=== PATIENT | male | born 1970 | race Caucasian/White ===

== ENCOUNTER → 2024-07-05 15:50 | Outpatient (REF) | payer OTHER, SELFPAY | LOC: HWRAD 15:50 | PROVIDERS: ATTENDING PHYSICIAN Nurse Practitioner | DX: M25.511 Pain in right shoulder (principal) | CPT/HCPCS: 73030 ==

== ENCOUNTER → 2024-10-08 06:22 | Day surgery (SDC) | payer OTHER, SELFPAY | LOC: GI 06:22 | PROVIDERS: ATTENDING PHYSICIAN Surgery | PROC: 0DBH8ZX Excision of Cecum, Via Natural or Artificial Opening Endoscopic, Diagnostic (ICD-10-PCS; 2024-10-08) | DX: Z12.11 Encounter for screening for malignant neoplasm of colon (principal); Z86.0100 Personal history of colon polyps, unspecified; D12.0 Benign neoplasm of cecum; D12.8 Benign neoplasm of rectum; K57.30 Diverticulosis of large intestine without perforation or abscess without bleeding; K64.8 Other hemorrhoids; K64.4 Residual hemorrhoidal skin tags | CPT/HCPCS: 45385; 88305 ==

== ENCOUNTER 2024-11-13 06:40 | Day surgery (SDC) | payer OTHER, SELFPAY ==
[2024-11-13 09:25] VITALS: BP 150/93
[2024-11-13] MEDS: NORMOSOL-R/PLASMALYTE-A 1000 IV (09:34)
[2024-11-13] MEDS: CELEBREX 200 MG PO (09:34)
[2024-11-13] MEDS: TYLENOL 1000 MG PO (09:34)
[2024-11-13 09:43] VITALS: BMI 32.4
[2024-11-13 09:44] VITALS: BMI 32.4
--- NOTE | 2024-11-13 11:09 | W.IMMPOSTOP ---
Surgical Immed Post Op Note
-
Primary Surgeon: Armond Alanis MD
Assisting Surgeon: None
Pre-op Diagnosis: Anal skin tags, internal hemorrhoids
Post-op Diagnosis: Anal skin tags, mixed�component hemorrhoids x 3 columns
Procedure Performed: Excision of anal skin tag
Anesthesia Type: Sedation
Specimen / Cultures: Anal skin tag
Estimated Blood Loss: 5 mL
Complications: None
Operative Findings: Moderate-sized pendulous AML skin tag, excised with Metzenbaum scissors and hemostasis with electrocautery; moderate to large internal hemorrhoids with large external component in the RPQ and LLQ; small to moderate internal
hemorrhoid in the RAQ with small external component
[2024-11-13 11:10] VITALS: BP 123/82
--- NOTE | 2024-11-13 11:11 | OR.RPT ---
Operative Report
Operative Report
DATE OF OPERATION: 11/13/2024
SURGEON: Armond Alanis MD
PREOPERATIVE DIAGNOSIS: Anterior anal skin tag, internal hemorrhoids
POSTOPERATIVE DIAGNOSIS: Anterior anal skin tag, mixed�component hemorrhoids in 3-column distribution
OPERATION: Exam under anesthesia, excision of anal skin tag, bilateral pudendal nerve block
ASSISTANTS:
1. None
ANESTHESIA: Sedation with local
ESTIMATED BLOOD LOSS: 5 mL
FINDINGS:
1. Moderate-sized pendulous anterior midline anal skin tag, excised
2. Moderate to large internal hemorrhoids in the right posterior and left lateral position with large external components; small to moderate internal hemorrhoid in the right anterior position with small external component; left these alone as these
would require a definitive hemorrhoidectomy versus suture hemorrhoidopexy
SPECIMENS:
1. Anal skin tag
DRAINS: None
COMPLICATIONS: None
INDICATIONS: The patient is a 54-year-old male who initially presented to my office with perianal irritation and was found to have a moderate-sized anal skin tag. He was found to have moderate to large internal hemorrhoids, but denied any typical
hemorrhoid symptoms, such as intermittent bleeding or anal pain associated with BMs. After a trial of nonoperative measures, the irritation persisted. Therefore, the patient was recommended to have surgery to remove the tag. The operation was
discussed with the patient in detail, including the risks, benefits and alternatives. Risks described included, but not limited to bleeding, infection, urinary retention, damage to nearby structures such as the anal sphincter, recurrence, and
anesthetic risks. The patient understood and agreed to proceed. The consent was signed and placed in the chart.
PROCEDURE IN DETAIL: The patient was taken to the operating room. The patient was placed on the operating table in prone position. Sequential compression devices were placed bilaterally. Sedation was commenced without complication. Two seat
belts were secured around the legs and upper back. The buttocks were taped apart. The perineum was shaved, prepped and draped in the usual fashion. A time-out was then performed verifying the correct patient, procedure, operative site,
positioning, and special equipment.
Local anesthesia used was a mixture of 60 mL of 0.25% Marcaine with epinephrine and 0.6 mg of dexamethasone. 40 mL was injected perianally at the beginning of the case. The anorectal exam was performed assessing all four quadrants of the anal canal
using Hill-Ruiz retractors in progressively increasing size. There was a moderate size anterior midline anal skin tag. The external components of the RPQ and LLQ internal hemorrhoids were noted to be quite large, larger than seen
preoperatively. The internal hemorrhoids in the RPQ and LLQ were noted to be moderate to large without irritation or bleeding. The internal hemorrhoid in the RAQ was small to moderate in size with a small external component, no irritation or
bleeding. The patient was not having typical hemorrhoid symptoms and therefore, the patient and I agreed to leave his hemorrhoids alone during this surgery. Therefore, I proceeded with anal skin tag excision.
I grasped the skin tag with an Allis and elevated it away from the sphincter. I excised it with Metzenbaum scissors. Hemostasis was achieved with electrocautery. The wound was irrigated.
The remaining 20 mL of local were injected. 5 mL was injected bilaterally for a pudendal nerve block. 10 mL was injected around the surgical site and perianally. Hemostasis was reassessed once more using the small Hill-Ruiz and was confirmed.
Surgicel was placed in the operative site prophylactically.
At this point, the procedure was complete. All needle, sponge and instrument counts were correct. The patient tolerated the procedure well and was transferred to the recovery room in stable condition with gauze dressing in place secured with silk
tape.
DICTATED BY: Armond Alanis MD
[2024-11-13 11:25] VITALS: BP 126/92
[2024-11-13 11:30] VITALS: BP 131/95
[2024-11-13 11:45] VITALS: BP 131/90
== END 2024-11-13 11:56 | disposition home or self-care (01) ==
LOC: SDS 06:40
PROVIDERS: ATTENDING PHYSICIAN Surgery
DX: K64.8 Other hemorrhoids (principal); K64.4 Residual hemorrhoidal skin tags
CPT/HCPCS: 46260; 88304